=== PATIENT | male | born 1990 | race Caucasian/White ===

== ENCOUNTER 2023-04-07 19:08 | Emergency (ER) | payer OTHER ==
[~2023-04-07] VITALS: Ht 177.8 cm; Wt 84.1 kg
[2023-04-07 19:57] VITALS: BP 120/95; PULSE 102; RESP 19; TEMP 98.5
== END 2023-04-07 20:30 | disposition left against medical advice (07) ==
LOC: EMS 19:12
DX: Z76.0 Encounter for issue of repeat prescription (principal); Z53.21 Procedure and treatment not carried out due to patient leaving prior to being seen by health care provider
CPT/HCPCS: 99281; Z7502